=== PATIENT | female | born 1985 | race Caucasian/White ===

== ENCOUNTER → 2022-02-24 13:26 | Outpatient (BNVA) | payer OTHER, SELFPAY | PROVIDERS: Visit Provider Obstetrics & Gynecology | DX: R10.2 Pelvic and perineal pain (principal); N83.202 Unspecified ovarian cyst, left side | CPT/HCPCS: 76830 ==

== ENCOUNTER 2022-05-04 05:51 | Day surgery (SDC) | payer OTHER, SELFPAY ==
[2022-05-03 10:01] VITALS: BMI 28.7
[2022-05-04] VITALS (7 sets, daily range): BP systolic 137–163; BP diastolic 68–100; PULSE 63–91; RESP 9–20; TEMP 36.1–36.6; O2SAT 100
--- NOTE | 2022-05-04 06:28 | P.ANESASSM_ITS ---
Pre-Anesthetic Assessment Height/Weight: Height 1.57 m Weight 71.214 kg Temp Pulse Resp BP Pulse Ox O2 Del Method 97.9 F 91 16 137/87 100 05/04/22 06:18 05/04/22 06:18 05/04/22 06:18 05/04/22 06:18 05/04/22 06:18 05/04/22 06:18 Preop Diagnosis: pelvic pain, left adnexal mass Operation Date: 05/04/22 07:00 Proposed Procedures p [Diagnostic laparoscopy 62349, possible oophorectomy 94428,R10.2(Not Applicable) - Lilli Castillo MD s Laparoscopic Oophorectomy(Not Applicable) - Lilli Castillo MD Familial anesthetic complications: no family history of trouble with anest. Last intake: Intake Last Liquid Date 05/03/22 Last Liquid Time 22:00 Last Solid Date 05/03/22 Last Solid Time 22:00 Social No alcohol and No tobacco Airway Submandibular: within normal limits Cervical ROM: within normal limits Mallampati: Class II Dentition: full Pulmonary None reported CV/HEM None reported None reported Hepatic None reported GI None reported Musc/skel Fibromyalgia, Lower Back Pain (fusion of vertebrae) and Osteoarthritis/DJD Neuropsych Depression Anesthetic Plan ASA status: 2 Medications/Allergies Home Medications Medication Instructions Recorded Confirmed Last Taken Type Saccharomyces boulardii 250 mg 250 mg PO BID 02/24/22 05/03/22 Unknown History capsule (Digest Probiotic (S.boulardii)) citalopram 20 mg tablet (Celexa) 20 mg PO DAILY 02/24/22 05/04/22 05/03/22 07:00 History nabumetone 500 mg tablet (Relafen) 1,000 mg PO BID 02/24/22 05/04/22 05/03/22 22:00 History estradiol 1 mg tablet 1 mg PO DAILY #90 tabs 03/16/22 05/04/22 05/03/22 22:00 Rx cyclobenzaprine 5 mg tablet 10 mg PO DAILY 05/02/22 05/04/22 05/03/22 22:00 History gabapentin 100 mg capsule 100 mg PO BID 05/02/22 05/04/22 05/03/22 22:00 History Allergies Allergy/AdvReac Type Severity Reaction Status Date / Time amoxicillin [From Augmentin] Allergy Intermediate itching Verified 05/02/22 1 5:54 clavulanic acid Allergy Intermediate itching Verified 05/02/22 15:54 [From Augmentin] morphine Allergy Intermediate itching Verified 05/02/22 15:54 bactrim Allergy Intermediate vomiting Uncoded 05/02/22 15:17 [facility] Anesthesia Medical History (Updated 05/03/22 @ 07:15 by Lilli Castillo MD) Right ankle injury surgical repair, 2019 Toe fracture, left surgical repair 2019 Surgical History (Updated 02/26/22 @ 17:14 by Lilli Castillo MD) H/O breast augmentation bilateral, 2010 H/O: hysterectomy 2018. History of tonsillectomy 2012 Family History (Updated 02/24/22 @ 13:40 by Marianna Nunes LPN) Father Heart disease Denies family history of Colon cancer Ovarian cancer Diabetes Hypercholesteremia Breast cancer Hypertension Uterine cancer Thyroid disease Stroke Data Anesthesia 05/04/22 06:50 05/04/22 06:50 Cardiac Studies: No Data to Display
[2022-05-04] MEDS: scopolamine 1.5 Patch 1 PATCH TRANSDERMA (06:58)
[2022-05-04] MEDS: sodium chloride 0.9% 1,000 ML 30 ML IV (06:59)
[2022-05-04] MEDS: acetaminophen 1,000 MG/100 ML PIGGYBACK 400 MG IV (06:59)
[2022-05-04] MEDS: phenazopyridine 100 mg Tablet 200 MG PO (07:00)
[2022-05-04] MEDS: CELEcoxib 200 mg Capsule 400 MG PO (07:00)
[2022-05-04] MEDS: gabapentin 300 mg Capsule PO (07:00)
[2022-05-04] MEDS: ceFAZolin 2,000 MG in sodium chloride 0.9% (plus) 50 ML 100 MG IV (07:06)
--- NOTE | 2022-05-04 07:06 | W.PM.OPSUD ---
Surgery/Procedure H&P Update DATE OF PROCEDURE: May 04, 2022 DATE H&P PERFORMED: 05/02/22 H&P UPDATE INFORMATION: I have reviewed H&P completed within last 30 days, I have examined patient prior to procedure and No changes to prior documentation PREOP DIAGNOSIS: pelvic pain, left adnexal mass PLANNED PROCEDURE: Operation Date: 05/04/22 07:00 Proposed Procedures p [Diagnostic laparoscopy 19750, possible oophorectomy 37100,R10.2(Not Applicable) - Lilli Castillo MD s Laparoscopic Oophorectomy(Not Applicable) - Lilli Castillo MD Related Problem List Diagnoses (1) Pelvic pain: (2) Ovarian cyst:
[2022-05-04 07:11] LABS: Basophils # 0.1 10^3/uL (0.0-0.1); Basophils % 0.6 %; Eosinophils # 0.2 10^3/uL (0.0-0.8); Hematocrit 37.6 % (37.0-47.0); Hemoglobin 11.9 g/dL (11.5-15.3); Lymphocytes # 3.3 10^3/uL (0.8-4.8); Lymphocytes % 41.2 %; Mean Corpuscular HGB Conc 31.6 g/dL (30.0-36.0); Mean Corpuscular Hemoglobin 28.3 pg (28.0-34.0); Mean Corpuscular Volume 89.3 fl (81-99); Mean Platelet Volume 10.1 fL (7.4-10.4); Monocytes # 0.6 10^3/uL (0.2-0.9); Monocytes % 7.9 %; Neutrophils # 3.85 10^3/uL (1.8-7.7); Neutrophils % 48.1 %; Nucleated Red Blood Cells % 0 %; Platelet Count 270 10^3/cmm (130-400); Red Blood Count 4.21 10^6/uL (4.1-5.3); Red Cell Distribution Width 13.3 % (12.1-15.1)
[2022-05-04 07:25] LABS: Anion Gap 16.4 (5-19); Blood Urea Nitrogen 12 mg/dL (6-20); Calcium 8.5 mg/dL (8.5-10.5); Carbon Dioxide 25 mmol/L (22-29); Chloride 102 mmol/L (98-107); Glomerular Filtration Rate 140.4 mL/min (90-130); Glucose 83 mg/dL (65-115); Osmolality Calculated 287 mOsm/kg (285-295); Potassium 4.4 mmol/L (3.5-5.1); Sodium 139 mmol/L (136-145)
[2022-05-04 07:35] LABS: Thyroid Stimulating Hormone 1.78 uIU/mL (0.27-4.20)
--- NOTE | 2022-05-04 08:28 | P.OP_ITS ---
Operative Report Date of procedure: May 04, 2022 Pre-op diagnosis: Preop Diagnosis pelvic pain, left adnexal mass Post-op diagnosis: same Post-op diagnosis: omentum adherent to bowel, bladder, pelvis Procedure done: Operative laparoscopy with lysis of adhesions and removal of left ovarian cyst Specimens removed/disposition: left ovarian cyst to pathology Surgeon: Lilli Castillo Anesthesia: General Estimated blood loss (mL): 5 IV fluids (mL): 800 Urine output (mL): 400 Complications: none Findings: moderate adhesions of omentum to pelvis, bowel, bladder, ovaries Condition: stable Disposition: PACU Procedure: The patient was taken to the operating room where general anesthesia was administered and found to be adequate. She was prepped and draped in the normal sterile fashion in the dorsal supine position A sponge stick was placed into the vagina. A Stanley catheter was placed. Attention was turned to the abdomen after the gloves were changed. A 5 mm supraumbilical incision was made and carried down to the underlying layer of fascia. Using the 5 mm trocar and the scope the trocar was placed under direct visualization. The pelvis was visualized and found to be full of omental adhesions. The omentum was adherent to the bowel, the bladder, the pelvis, the rectum, the ovaries, and the pelvic sidewall. 2 additional 5 mm ports were placed. One on the right and 1 on the left lower abdomen. These were placed under direct visualization. The anterior pelvis was elevated. There were many adhesions. Using the laparoscopic cautery, the omentum was elevated, cauterized and cut to remove the adhesions. Care was taken not to do any cautery on the bowel, bladder or pelvic sidewalls. The omentum was completely freed and excellent hemostasis assured. The area was irrigated and suctioned. There was excellent hemostasis. The trochars were removed under direct visualization and the abdomen desufflated. The Stanley catheter was removed, along with the sponge stick. Incisions were closed using 3-0 Vicryl and skin glue. 10 ml of 1/2 % bupivacain e was injected around the incisions. The patient tolerated the procedure well. Sponge lap and needle counts were correct x3. Taken to the recovery room in stable condition.
--- NOTE | 2022-05-04 08:33 | P.DS_ITS ---
Discharge Providers Date of Admission: 05/04/22 Date of Discharge: May 04, 2022 Attending Provider at Discharge: Lilli Castillo MD Diagnoses at Discharge Discharge Diagnosis (1) Pelvic pain: Status: Acute (2) Ovarian cyst: Status: Acute Reason for Visit Reason for Visit: Pelvic and perineal pain Hospital Course Hospital Course The patient was admitted for surgery. She did well postoperatively and was ready for discharge on day #0 Physical Exam Urinary Catheter Management: Stanley: Cath Placed During This Visit: yes Urinary Catheter Date of Insertion: 05/04/22 Urinary Catheter Time of Insertion: 07:20 Discharge Data Studies Completed and Pending Pending at discharge Category Date Time Status Urine Culture Routine Lab 05/04/22 06:50 Received Laboratory Results WBC 8.0 10^3/uL (4.0-10.0) 05/04/22 06:50 RBC 4.21 10^6/uL (4.1-5.3) 05/04/22 06:50 Hgb 11.9 g/dL (11.5-15.3) 05/04/22 06:50 Hct 37.6 % (37.0-47.0) 05/04/22 06:50 MCV 89.3 fl (81-99) 05/04/22 06:50 MCH 28.3 pg (28.0-34.0) 05/04/22 06:50 MCHC 31.6 g/dL (30.0-36.0) 05/04/22 06:50 RDW 13.3 % (12.1-15.1) 05/04/22 06:50 Plt Count 270 10^3/cmm (130-400) 05/04/22 06:50 MPV 10.1 fL (7.4-10.4) 05/04/22 06:50 Neut % (Auto) 48.1 % 05/04/22 06:50 Lymph % (Auto) 41.2 % 05/04/22 06:50 [place] % (Auto) 7.9 % 05/04/22 06:50 Eos % (Auto) 2.0 % 05/04/22 06:50 Baso % (Auto) 0.6 % 05/04/22 06:50 Neut # (Auto) 3.85 10^3/uL (1.8-7.7) 05/04/22 06:50 Lymph # (Auto) 3.3 10^3/uL (0.8-4.8) 05/04/22 06:50 [place] # (Auto) 0.6 10^3/uL (0.2-0.9) 05/04/22 06:50 Eos # (Auto) 0.2 10^3/uL (0.0-0.8) 05/04/22 06:50 Baso # (Auto) 0.1 10^3/uL (0.0-0.1) 05/04/22 06:50 Nucleated RBC % (auto) 0 % 05/04/22 06:50 Nucleated RBCs # 0.0 /100WBC 05/04/22 06:50 Sodium 139 mmol/L (136-145) 05/04/22 06:50 Potassium 4.4 mmol/L (3.5-5.1) 05/04/22 06:50 Chloride 102 mmol/L (98-107) 05/04/22 06:50 Carbon Dioxide 25 mmol/L (22-29) 05/04/22 06:50 Anion Gap 16.4 (5-19) 05/04/22 06:50 BUN 12 mg/dL (6-20) 05/04/22 06:50 Creatinine 0.5 mg/dL (0.5-0.9) 05/04/22 06:50 GFR Calculation 140.4 mL/min (90-130) H 05/04/22 06:50 Glucose 83 mg/dL (65-115) 05/04/22 06:50 Calculated Osmolality 287 mOsm/kg (285-295) 05/04/22 06:50 Calcium 8.5 mg/dL (8.5-10.5) 05/04/22 06:50 TSH 1.78 uIU/mL (0.27-4.20) 05/04/22 06:50 Vitals Last Vital Signs Temp 97.9 F 05/04/22 06:18 Pulse 91 05/04/22 06:18 Resp 16 05/04/22 06:18 BP 137/87 05/04/22 06:18 Pulse Ox 100 05/04/22 06:18 O2 Del Method 05/04/22 06:18 Discharge Plan Discharge Patient Disposition: Home Condition: Stable Prescriptions: New hydrocodone-acetaminophen 5-325 mg tablet 1 tab PO Q4H Qty: 20 0RF Continued nabumetone [Relafen] 500 mg tablet 1,000 mg PO BID Rx Instructions: RA citalopram [Celexa] 20 mg tablet 20 mg PO DAILY Saccharomyces boulardii [Digest Probiotic (S.boulardii)] 250 mg capsule 250 mg PO BID gabapentin 100 mg capsule 100 mg PO BID cyclobenzaprine 5 mg tablet 10 mg PO DAILY estradiol 1 mg tablet 1 mg PO DAILY Qty: 90 5RF Discharge Orders: Discharge Order (Routine); Ordered 05/04/22 Ordered By: Lilli Castillo Referrals: Lilli Castillo MD [Physician] - (Dr Castillo's office will contact you for a post-operative tele-visit in 1 week. You will need to scheudle an appointment for 6 weeks for a follow up and pap smear.) Patient Instructions: Laparoscopic Oophorectomy (DC), Post Anesthesia Care Discharge Attestations Time Spent in Discharge Care*: less than 30 min Quality Metrics Clinical Quality Measures [ No reported AMI, CVA or VTE this stay] Coding Level of Care Code Acute Code for Chg Fwd Diagnoses Pelvic pain R10.2 Ovarian cyst N83.209
[2022-05-04] MEDS: HYDROcodone-acetaminophen 5-325 mg Tablet 1 TAB PO (09:22)
--- NOTE | 2022-05-04 15:51 | ANE.PACU2 ---
Inpatient post-anesthesia follow up: Airway intact: Yes Vital signs: Temperature 97.0 F Pulse Rate 72 Respiratory Rate 16 Blood Pressure 139/68 Pulse Oximetry 100 Oxygen Delivery Me thod Room Air Oxygen Flow Rate Fraction of Inspir ed Oxygen Hydration adequate: Yes Nausea and vomiting: No Pain level: 2 Mental status: Baseline
== END 2022-05-04 09:40 | disposition home or self-care (01) ==
PROVIDERS: Visit Provider Obstetrics & Gynecology
PROC: (CPT 49320; principal; 2022-05-04 07:00)
PROC: (CPT 58661; 2022-05-04 07:00)
DX: R10.2 Pelvic and perineal pain (principal); N83.202 Unspecified ovarian cyst, left side; M79.7 Fibromyalgia
CPT/HCPCS: 58662; 36592; 51702; 80048; 84443; 85025; 87086; 88304; J0131; J0690; J1100; J2250; J2370; J2405; J2704; J2710; J3010; J3490; J7030

== ENCOUNTER → 2022-06-17 16:28 | Outpatient (BNVA) | payer OTHER, SELFPAY | PROVIDERS: Visit Provider Obstetrics & Gynecology | DX: E28.319 Asymptomatic premature menopause (principal) | CPT/HCPCS: 83001; 83002; 83525 ==